=== PATIENT | female | born 1985 | race Caucasian/White ===

== ENCOUNTER 2021-04-27 11:33 | Emergency (ER) | payer MEDICAID ==
[2021-04-27 11:47] VITALS: BP 128/85
--- NOTE | 2021-04-27 13:57 | ED Physician Documentation ---
History of Present Illness - Stated complaint Stated Complaint: R ARM PX - Chief complaint Chief Complaint: Ext Problem - History obtained from History obtained from: Patient - History of Present Illness Timing: How many weeks ago (1) Pain level max: 5 Pain level now: 4 - Additonal information Additional information: Patient is a 35-year-old female who presents to the emergency department stating that she has had right wrist pain for the past week. Started after putting up several shelves and using a socket wrench. The pain is worse with movement, better with rest. No swelling. No deformity. Taken Motrin for pain. Patient is right-handed. Review of Systems Ten Systems: 10 systems reviewed and negative Constitutional: denies: Fever, Chills Respiratory: denies: Cough GI: denies: Nausea, Vomiting, Diarrhea Skin: denies: Rash Musculoskeletal: denies: Neck pain, Back pain Neurologic: denies: Headache PD PAST MEDICAL HISTORY - Past Medical History Past Medical History: No - Past Surgical History Past Surgical History: No - Present Medications Home Medications: Ambulatory Orders Medication Instructions Recorded Confirmed Cyclobenzaprine HCl 5 mg PO TID PRN 04/27/21 04/27/21 Naproxen [EC-Naproxen] 500 mg PO BID PRN 04/27/21 04/27/21 - Allergies Allergies/Adverse Reactions: Allergies Allergy/AdvReac Type Severity Reaction Status Date / Time No Known Drug Allergies Allergy Verified 04/27/21 11:42 - Living Situation Living Situation: reports: With family Living Arrangement: reports: At home - Social History Does the pt have substance abuse?: No - Family History Family history: reports: Non contributory PD ED PE NORMAL - Vitals Vital signs reviewed: Yes - General General: Alert and oriented X 3, No acute distress, Well developed/nourished - HEENT HEENT: PERRL, Moist mucous membranes - Neck Neck: Supple, no meningeal sign - Derm Derm: Warm and dry - Extremities Extremities: Other (Right hand/wrist - no deformity, FROM present. pain over the Extensor pollicis longus and extensor pollicis brevis area. NVI) - Neuro Neuro: Alert and oriented X 3 - Psych Psych: Normal mood, Normal affect Results - Vitals Vitals: Vital Signs - 24 hr 04/27/21 11:44 Temperature 36.9 C Heart Rate 68 Respiratory 16 Rate Blood Pressure 128/85 H O2 Saturation 100 Oxygen O2 Source Room air PD MEDICAL DECISION MAKING - ED course Complexity details: considered differential, d/w patient ED course: Patient appears to have tendinitis from an overuse injury. Placed in a Velcro thumb spica. We will utilize anti-inflammatory medications for home. Patient counseled regarding signs and symptoms for which I believe and urgent re- evaluation would be necessary. Patient with good understanding of and agreement to plan and is comfortable going home at this time This document was made in part using voice recognition software. While efforts are made to proofread this document, sound alike and grammatical errors may occur. Departure - Departure Disposition: Home, Self Care Clinical Impression: Tendinitis Condition: Good Instructions: Tendonitis and Tenosynovitis Follow-Up: [facility]opedic Care [Provider Group] - Within 1 week Comments: Wear the splint as needed to help immobilize the joint to allow the tendinitis to heal. Continue gentle range of motion and gentle stretching. You can use anti-inflammatory medications as well including Motrin and Aleve. Please follow-up with orthopedics for repeat evaluation in 1 week. Return if you worsen.
== END 2021-04-27 14:23 | disposition home or self-care (01) ==
LOC: ED 11:33
DX: M77.8 Other enthesopathies, not elsewhere classified (principal)
CPT/HCPCS: 99282

== ENCOUNTER 2023-10-17 08:00 | Outpatient (CLI) | payer BC, MEDICAID ==
[2023-10-17 23:07] LABS: CHLAMYDIA TRACHOMATIS DNA NEGATIVE (NEGATIVE); NEISSERIA GONORRHOEAE DNA NEGATIVE (NEGATIVE); TRICHOMONAS VAGINALIS DNA NEGATIVE (NEGATIVE)
== END 2023-10-17 23:59 | disposition home or self-care (01) ==
LOC: LAB.S 08:00
PROVIDERS: ATTEND Registered Nurse
DX: J02.9 Acute pharyngitis, unspecified (principal); B00.1 Herpesviral vesicular dermatitis; L21.0 Seborrhea capitis; Z11.3 Encounter for screening for infections with a predominantly sexual mode of transmission
CPT/HCPCS: 81599; 87070; 87101; 87220; 87491; 87591; 87661

== ENCOUNTER 2023-10-22 13:22 | Outpatient (CLI) | payer BC ==
[2023-10-24 01:09] LABS: RPR Non Reactive (Non Reactive)
== END 2023-10-22 13:23 | disposition home or self-care (01) ==
LOC: LAB.S 13:22
PROVIDERS: ATTEND Registered Nurse
DX: L21.0 Seborrhea capitis (principal); B00.1 Herpesviral vesicular dermatitis; Z11.3 Encounter for screening for infections with a predominantly sexual mode of transmission; J02.9 Acute pharyngitis, unspecified
CPT/HCPCS: 36415; 86592; 87389